=== PATIENT | female | born 2005 | race Caucasian/White ===

== ENCOUNTER 2024-08-06 05:56 | Inpatient (IN) | payer OTHER, SELFPAY ==
[2024-08-06] VITALS (136 sets, daily range): BP systolic 65–228; BP diastolic 30–199; PULSE 64–225; RESP 18; TEMP 36.9–37.5; O2SAT 90–100; BMI 28.2
--- NOTE | 2024-08-06 06:29 | PM.IMHP ---
H&P: HPI History of Present Illness Date/Time: 08/06/24 06:29 Chief Complaint: Induction of labor at term Narrative: 19-year-old 1 para 0 whose last menstrual period gives an EDC of 08/10/2024 confirmed by early ultrasound presents at 39 and half weeks gestation for induction of labor. She is negative for group B strep in her has been uncomplicated. Her cervix is favorable Review of Systems Review of Systems: All systems reviewed & are unremarkable except as noted in HPI and below PMFSH Family History Family History Other Patient denies significant medical history Social History Social History Substance use: never Spiritual care concerns: No Meds Home Medications and Allergies Home Medications ?Medication ?Instructions ?Recorded ?Confirmed ?Type Vitamin BYMOUTH DAILY 07/11/24 History ferrous sulfate 325 mg (65 mg 325 mg PO DAILY 07/11/24 07/11/24 History iron) tablet (FeroSul) Allergies Allergy/AdvReac Type Severity Reaction Status Date / Time No Known Allergies Allergy Verified 07/11/24 13:56 Exam Const: General: cooperative, healthy appearing and comfortable Nutritional Appearance: average body habitus Orientation/consciousness: oriented to person, oriented to place and oriented to time HENMT: Head: normal to inspection Chest: Chest palpation & inspection: normal inspection of the chest Resp: Effort & Inspection: normal respiratory effort Cardio: Rate: regular rate Rhythm: regular rhythm Heart sounds: S1 normal heart sound present and S2 normal heart sound present GI: Inspection: normal to inspection (Gravid soft uterus) : External Female Exam: normal external appearance Speculum Exam - Vagina: normal appearance of the vagina Speculum Exam - Cervix: normal appearance of the cervix (Cervix 3/80/1. Attempted a round. FHTs reassuring) Assessment and Plan Assessment and plan (1) Term : Code(s): Z34.90 - Encounter for supervision of normal , unspecified, unspecified trimester Status: Acute Plan Medical induction of labor. Spontaneous vaginal delivery is expected. She is an epidural candidate
[2024-08-06 06:35] LABS: Basophils Percent Auto 0.3 % (0.2-1.2); Eosinophils Absolute Auto 0.2 K/mm3 (0-0.3); Eosinophils Percent Auto 1.2 % (0-4.4); Hematocrit 32.8 % (37.0-47.0); Immature Granulocyte Absolute 0.19 K/mm3 (0.00-0.031); Immature Granulocyte Percent A 1.5 % (0-0.5); Lymphocytes Absolute Auto 2.62 K/mm3 (0.9-3.2); Lymphocytes Percent Auto 20.7 % (18.3-44.2); Mean Corpuscular HGB Conc 30.5 g/dl (32-36); Mean Corpuscular Hemoglobin 24.4 pg (26-34); Mean Platelet Volume 11.3 fl (7.4-10.4); Monocytes Absolute Auto 0.8 K/mm3 (0.1-0.6); Monocytes Percent Auto 6.1 % (2.6-8.5); Neutrophils Absolute Auto 8.9 K/mm3 (1.3-6.7); Neutrophils Percent Auto 70.2 % (45.5-73.1); Platelet Count Result 173 k/mm3 (150-375); White Blood Count 12.7 K/mm3 (4.5-10.0)
[2024-08-06] MEDS: LACTATED RINGERS 1,000 ML 125 ML IV CONT (06:51)
[2024-08-06] MEDS: OXYTOCIN 30 UNITS/NS 500 ML 30 UNITS/500 ML BAG 6 UNITS IV CONT (06:54)
--- NOTE | 2024-08-06 06:57 | LDADM ---
This patient, Toño Lopez, was admitted to Labor/Delivery/Recovery 107 on 08/06/24 at 05:56. Plans for labor, pain management and were discussed with patient. Patient/family oriented to hospital policies and general routines including ID bracelet, bed and alarms, visiting hours, pain management, procedures, bathroom and other care routines, personal items, smoking policy, room service/diet and guest tray routines, security routines, and visiting hours. Patient/Family are encouraged to report perceived risks to care and to ask questions if they do not understand what they are told or what they should do. See OBIX for further documentation.
[2024-08-06 07:20] LABS: Syphilis IgG/IgM Antibody Negative (Negative)
[2024-08-06 07:26] LABS: HIV 1/2 Ab P24 Ag Result Negative (Negative)
[2024-08-06] MEDS: ONDANSETRON INJ 4 MG/2 ML VIAL IV PUSH (10:00)
[2024-08-06] MEDS: fentaNYL CITRATE INJ (*CRX) 100 MCG/2 ML VIAL IV PUSH (10:02)
[2024-08-06] MEDS: LACTATED RINGERS 1,000 ML 999 ML IV CONT ×2 (10:21→12:57)
--- NOTE | 2024-08-06 10:27 | P.PNAN_ITS ---
Anes - Eval Pre Procedure Procedure: Labor epidural Date/Time: 08/06/24 10:27 Surgeon: Yanet Santana Preop Diagnosis: Abdominal pain with contractions Pre Op Diagnosis: IOL Patient Data Age: 19 Gender: F Height: 1.6 m Weight: 72.3 kg Last Vital Signs Temp 98.6 F 08/06/24 08:00 Pulse 68 08/06/24 10:16 BP 119/63 08/06/24 10:16 Pulse Ox 97 08/06/24 10:22 Allergies Allergy/AdvReac Type Severity Reaction Status Date / Time No Known Allergies Allergy Verified 07/11/24 13:56 Home Medications ?Medication ?Instructions ?Recorded ?Confirmed ?Type Vitamin BYMOUTH DAILY 07/11/24 History ferrous sulfate 325 mg (65 mg 325 mg PO DAILY 07/11/24 07/11/24 History iron) tablet (FeroSul) Laboratory Tests 08/06/24 06:10 WBC 12.7 H K/mm3 (4.5-10.0) RBC 4.10 L M/mm3 (4.2-5.4) Hgb 10.0 L g/dL (12.0-15.0) Hct 32.8 L % (37.0-47.0) MCV 80.0 fl (80-100) MCH 24.4 L pg (26-34) MCHC 30.5 L g/dl (32-36) RDW 19.0 H % (11.5-14.5) Plt Count 173 k/mm3 (150-375) MPV 11.3 H fl (7.4-10.4) Immature Gran % (Auto) 1.5 H % (0-0.5) Neut % (Auto) 70.2 % (45.5-73.1) Lymph % (Auto) 20.7 % (18.3-44.2) [place] % (Auto) 6.1 % (2.6-8.5) Eos % (Auto) 1.2 % (0-4.4) Baso % (Auto) 0.3 % (0.2-1.2) Lymph # (Auto) 2.62 K/mm3 (0.9-3.2) [place] # (Auto) 0.8 H K/mm3 (0.1-0.6) Eos # (Auto) 0.2 K/mm3 (0-0.3) Baso # (Auto) 0.0 K/mm3 (0.0-0.1) Abs Immat Gran (auto) 0.19 H K/mm3 (0.00-0.031) Absolute Neuts (auto) 8.9 H K/mm3 (1.3-6.7) Absolute Nucleated RBC 0.000 K/mm3 (0.0-0.012) Nucleated RBC % 0.0 % (0.0-0.2) Syphilis IgG/IgM Ab Negative (Negative) HIV 1&2 Ab/P24 Ag 4thGn Negative (Negative) Blood Type O Positive Antibody Screen Negative : gestational age HCG: positive Patient hx anesthesia problems: none Family hx anesthesia problems: none Results Review: All pre-operative results and documents have been reviewed as part of the pre- operative evaluation. [facility] Past Medical History Medical History Term Family History Family History Other Patient denies significant medical history Social History Social History Smoking status: Never smoker Second hand tobacco smoke exposure: No Substance use: never Do You Feel Safe in your Home?: Yes Lack of Transportation: No Lack of Food: Never True Current Housing: I Have Housing Concerned About Future Housing: No Difficulty Paying Gas/Electric Bills: No Difficulty Paying for Meds: No Currently Unemployed: No Education: Grade School Difficulty w/ Childcare or Family Care: No Spiritual care concerns: No Exam Day of Procedure 08/06/24 10:27 Patient weight: overweight Heart: regular rate and rhythm Lungs: clear to auscultation Airway: Mallampati scale
--- NOTE | 2024-08-06 12:25 | PM.OBPNLAB ---
Pain Control Date/time seen: 08/06/24 12:25 Pain control: tolerating well and epidural Pelvic Exam Dilation (cm): 7 Effacement (%): 100 station: 0 Amniotic membrane status: Leaking
--- NOTE | 2024-08-06 14:39 | P.PCNOB_ITS ---
OB - Vaginal Delivery Note Procedure Delivery date: 08/06/24 Events: Elective Induction of Labor Induction method: AROM Delivery augmentation: Pitocin Delivery monitor: External FHT and External Uterine Route of delivery: Episiotomy description: None Laceration Description: Perineal - 1st Degree Delivery repair: vicryl Specimen: No Quantitative Blood Loss (ml): 62 Anesthesia type: Epidural Disposition: Floor Complications: No immediate complications Narrative: Patient was admitted for induction of labor on the early a.m. 08/06/2024. Artificial rupture membranes performed. Epidural anesthesia was placed later that morning and she progressed to an unremarkable 1st stage of labor when she was complete she pushed delivered head spontaneously in the ANGELO position. Anterior posterior shoulder delivered spontaneously. Cord clamped and cut and placed in warmer given Apgars of 9 [id number]. Cord blood was drawn. Placenta delivered SPECT spontaneously. Twenty-two and post Pitocin placed IV to help firm the uterus. After inspecting the lateral sidewalls a small sulcal tear was seen in the midportion and a [id number] placed as it was a 1st degree QBL was 62cc. All sponge, needle, instrument counts were correct. There were no immediate complications [place] Baby Date of : 08/06/24 Time of : 14:30 Gestational Age by Date: 39 Infant gender: Female Weight (pounds): 6 Weight (ounces): 12 presentation: vertex position: Left Occiput Anterior Placenta delivery description: Spontaneous Cord Vessel Description: 3 Vessels score one minute: 9 score five minutes: 9
--- NOTE | 2024-08-06 14:42 | P.DS_ITS ---
DS: Admitting Diagnosis Discharge Date 08/08/2024 Admitting Diagnosis Term DS: Discharge Diagnosis Discharge Diagnosis (1) Term : Code(s): Z34.90 - Encounter for supervision of normal , unspecified, unspecified trimester Status: Acute DS: Summary Hospital Course Reason for hospitalization: Patient was admitted early a.m. for induction of labor and underwent spontaneous vaginal delivery on 08/06/2024 Hospital Course: The patient's hospital course was unremarkable. She remained afebrile. She was up, voiding without difficulty, ambulating, eating regular diet, and generally without complaints. Time Spent with Patient Time attestation: Total time spent providing and/or coordinating discharge services: Exam Const: General: cooperative, healthy appearing and comfortable Nutritional Appearance: average body habitus Orientation/consciousness: oriented to person, oriented to place and oriented to time HENMT: Head: normal to inspection Chest: Chest palpation & inspection: normal inspection of the chest Resp: Effort & Inspection: normal respiratory effort Cardio: Rate: regular rate Rhythm: regular rhythm Heart sounds: S1 normal heart sound present and S2 normal heart sound present GI: Inspection: normal to inspection (Gravid soft uterus) : External Female Exam: normal external appearance Speculum Exam - Vagina: normal appearance of the vagina Speculum Exam - Cervix: normal appearance of the cervix (Cervix 3/80/1. Attempted a round. FHTs reassuring) DS: Data Data Completed and Pending Labs on day of discharge: Labs from last 24 hours 08/06/24 06:10 WBC 12.7 H RBC 4.10 L Hgb 10.0 L Hct 32.8 L MCV 80.0 MCH 24.4 L MCHC 30.5 L RDW 19.0 H Plt Count 173 MPV 11.3 H Immature Gran % (Auto) 1.5 H Neut % (Auto) 70.2 Lymph % (Auto) 20.7 [place] % (Auto) 6.1 Eos % (Auto) 1.2 Baso % (Auto) 0.3 Lymph # (Auto) 2.62 [place] # (Auto) 0.8 H Eos # (Auto) 0.2 Baso # (Auto) 0.0 Abs Immat Gran (auto) 0.19 H Absolute Neuts (auto) 8.9 H Absolute Nucleated RBC 0.000 Nucleated RBC % 0.0 Syphilis IgG/IgM Ab Negative HIV 1&2 Ab/P24 Ag 4thGn Negative Blood Type O Positive Antibody Screen Negative Discharge Plan Discharge Attending physician on discharge: Lewis Mohan Discharging Clinician: Lewis Mohan Patient Disposition: Home Activity: may shower, no straining and pelvic rest Diet: heart healthy Wound Care Instructions: follow printed instructions Patient Instructions: Antibiotic Form Patient Language: Yoruba Stand Alone Forms: General Discharge Information Follow-up/Referrals: Lewis Mohan MD [Physician] - Discharge Medications: Continued ferrous sulfate [FeroSul] 325 mg (65 mg iron) tablet 325 mg PO DAILY Vitamin BYMOUTH DAILY Date of admission: 08/06/24 05:56 Primary Care Provider: UNKNOWN,DOCTOR Admitting Provider: Lewis Mohan Attending physician on admission: Lewis Mohan Condition: Stable
[2024-08-06] MEDS: OXYTOCIN 30 UNITS/NS 500 ML 30 UNITS/500 ML BAG 125 UNITS IV CONT (15:01)
--- NOTE | 2024-08-06 18:00 | OBPPTRN ---
Patient transferred to post room #290 via wheelchair. Support person present. Oriented to unit, room, information board, rooming in, admission packet and security measures. Patient verbalizes understanding.
[2024-08-07 04:55] VITALS: TEMP 36.7
[2024-08-07] MEDS: IBUPROFEN 600 MG TABLET PO (04:55)
[2024-08-07 05:45] LABS: Hematocrit 31.1 % (37.0-47.0); Hemoglobin 9.3 g/dL (12.0-15.0)
--- NOTE | 2024-08-07 07:01 | P.PNOB_ITS ---
OB - PN: Subj Subjective Date/time seen: 08/07/24 07:01 Patient comments: no complaints, pain well controlled and tolerating diet [place] baby status: doing well OB - PN: Obj Data Labs 08/07/24 04:57 Labs: Laboratory Results - last 24 hr 08/06/24 08/07/24 06:10 04:57 Hgb 9.3 L Hct 31.1 L Syphilis IgG/IgM Ab Negative HIV 1&2 Ab/P24 Ag 4thGn Negative Blood Type O Positive Antibody Screen Negative OB - PN A/P Assessment and Plan (1) Term : Code(s): Z34.90 - Encounter for supervision of normal , unspecified, unspecified trimester Status: Acute Plan Comments: routine care Time Spent With Patient Time: Total time spent is greater than 50% in coordination of care (as documented) at patient's floor/unit and/or counseling patient: Review of Systems 2 Review of Systems: All systems reviewed & are unremarkable except as noted in HPI and below Exam 2 Const: General: cooperative, healthy appearing and comfortable Nutritional Appearance: average body habitus Orientation/consciousness: oriented to person, oriented to place and oriented to time HENMT: Head: normal to inspection Chest: Chest palpation & inspection: normal inspection of the chest Resp: Effort & Inspection: normal respiratory effort Cardio: Rate: regular rate Rhythm: regular rhythm Heart sounds: S1 normal heart sound present and S2 normal heart sound present GI: Inspection: normal to inspection (Gravid soft uterus) : External Female Exam: normal external appearance Speculum Exam - Vagina: normal appearance of the vagina Speculum Exam - Cervix: normal appearance of the cervix (Cervix 3/80/1. Attempted a round. FHTs reassuring)
[2024-08-07] MEDS: POLYSACCHARIDE IRON COMPLEX 150 MG CAPSULE PO ×2 (08:27→20:20)
[2024-08-07] MEDS: MULTIVIT/MIN/PREN/FOL AC/IRON TABLET 1 TAB PO (08:27)
[2024-08-07] MEDS: DOCUSATE SODIUM 100 MG CAPSULE PO ×2 (08:27→20:20)
[2024-08-07 08:30] VITALS: BP 98/61; PULSE 77; RESP 16; TEMP 36.6; O2SAT 99
--- NOTE | 2024-08-07 08:43 | WPDANLDPN2 ---
Anes-Prog Note L&D Date/Time: 08/07/24 08:43 Comfortable throughout: labor and delivery Neuraxial method: epidural Epidural/Spinal procedure site: clean & non-tender Neuro status: Neuro function grossly intact. Cardiovascular status: normal Respiratory status: normal Airway patency: baseline Mental status: baseline Post-Op hydration status: normal Vital Signs: Last Vital Signs Temp 36.7 C 08/07/24 04:55 Pulse 92 08/06/24 23:30 Resp 18 08/06/24 23:30 BP 99/61 L 08/06/24 23:30 Pulse Ox 100 08/06/24 23:30 O2 Del Method Room Air 08/06/24 18:19 Pain score (VAS): 2 Post-procedural complaints: none Patient feedback: Patient satisfied with anesthetic care.
[2024-08-07 12:30] VITALS: BP 111/72; PULSE 87; RESP 16; TEMP 36.6; O2SAT 99
[2024-08-07 20:20] VITALS: BP 106/68; PULSE 91; RESP 18; TEMP 36.7; O2SAT 100
[2024-08-07] MEDS: ACETAMINOPHEN 325 MG TABLET 650 MG PO (20:20)
[2024-08-08] MEDS: DOCUSATE SODIUM 100 MG CAPSULE PO (07:56)
[2024-08-08] MEDS: POLYSACCHARIDE IRON COMPLEX 150 MG CAPSULE PO (07:56)
[2024-08-08] MEDS: IBUPROFEN 600 MG TABLET PO (08:01)
--- NOTE | 2024-08-08 08:06 | PM.OBPNVD ---
OB - PN: Subj Subjective Date/time seen: 08/08/24 08:06 Patient comments: no complaints, pain well controlled and tolerating diet [place] feeding status: exclusively breast feeding OB - PN: Obj Data Labs 08/07/24 04:57 OB - PN A/P Assessment and Plan (1) Term : Code(s): Z34.90 - Encounter for supervision of normal , unspecified, unspecified trimester Status: Acute Plan Comments: home Time Spent With Patient Time: Total time spent is greater than 50% in coordination of care (as documented) at patient's floor/unit and/or counseling patient: Review of Systems Review of Systems: All systems reviewed & are unremarkable except as noted in HPI and below Exam Const: General: cooperative, healthy appearing and comfortable Nutritional Appearance: average body habitus Orientation/consciousness: oriented to person, oriented to place and oriented to time HENMT: Head: normal to inspection Chest: Chest palpation & inspection: normal inspection of the chest Resp: Effort & Inspection: normal respiratory effort Cardio: Rate: regular rate Rhythm: regular rhythm Heart sounds: S1 normal heart sound present and S2 normal heart sound present GI: Inspection: normal to inspection (Gravid soft uterus) : External Female Exam: normal external appearance Speculum Exam - Vagina: normal appearance of the vagina Speculum Exam - Cervix: normal appearance of the cervix (Cervix 3/80/1. Attempted a round. FHTs reassuring)
[2024-08-08 08:35] VITALS: BP 112/69; PULSE 70; RESP 18; TEMP 36.8; O2SAT 100
--- NOTE | 2024-08-08 10:23 | PC.NURSE ---
Patient viewed the discharge video Mother & Baby Care, The First Two Weeks . Patient was given the opportunity and encouraged to ask questions. Patient verbalized understanding of information shared and has been given the mother/baby guide for home reference.
[2024-08-09 08:45] VITALS: BP 108/65; PULSE 78; RESP 18; TEMP 36.9; O2SAT 100
== END 2024-08-08 12:00 | disposition home or self-care (01) | DRG 560 ==
LOC: ANHLDR 14:44 → ANHOB2 18:00
PROVIDERS: Admitting Provider Obstetrics & Gynecology; Visit Provider Obstetrics & Gynecology
DX: O70.0 First degree perineal laceration during delivery (principal); Z37.0 Single live birth; Z3A.39 39 weeks gestation of pregnancy
CPT/HCPCS: 36415; 85014; 85018; 85025; 86593; 86703; 86850; 86900; 86901; A9270; G0432; J2405; J2590; J2795; J3010; J7120

== ENCOUNTER 2024-08-12 16:39 | Outpatient (CLI) | payer OTHER, SELFPAY ==
[2024-08-12 18:04] LABS: Hematocrit 36.5 % (37.0-47.0); Hemoglobin 10.7 g/dL (12.0-15.0); Mean Corpuscular HGB Conc 29.3 g/dl (32-36); Mean Corpuscular Hemoglobin 24.1 pg (26-34); Mean Corpuscular Volume 82.2 fl (80-100); Mean Platelet Volume 10.8 fl (7.4-10.4); Platelet Count Result 224 k/mm3 (150-375); Red Blood Count 4.44 M/mm3 (4.2-5.4); Red Cell Distribution Width 18.9 % (11.5-14.5); White Blood Count 11.4 K/mm3 (4.5-10.0)
[2024-08-12 18:15] LABS: Alanine Aminotransferase 33 U/L (6-35); Albumin Level 4.3 g/dL (3.5-5.1); Alkaline Phosphatase 157 U/L (38-126); Anion Gap 11 mmol/L (4-12); Aspartate Amino Transferase 28 U/L (14-36); Bilirubin,Total 0.5 mg/dL (0.2-1.3); Blood Urea Nitrogen 14 mg/dL (7-17); Calcium 9.4 mg/dL (8.4-10.2); Carbon Dioxide 26 mmol/L (22-30); Chloride 102 mmol/L (98-107); Estimated Glomerular Filt Rate > 60; Glucose 66 mg/dL (65-110); Potassium 3.8 mmol/L (3.4-5.0); Sodium 139 mmol/L (137-145)
== END 2024-08-12 16:40 | disposition home or self-care (01) ==
LOC: ANHLAB 16:41
PROVIDERS: Visit Provider Obstetrics & Gynecology
DX: O86.4 Pyrexia of unknown origin following delivery (principal); G89.18 Other acute postprocedural pain
CPT/HCPCS: 36415; 80053; 85027

== ENCOUNTER 2024-10-06 23:55 | Emergency (ER) | payer OTHER, SELFPAY ==
[2024-10-06 23:59] VITALS: BP 100/65; PULSE 64; RESP 16; TEMP 36.7; O2SAT 100
--- NOTE | 2024-10-07 00:05 | PC.NURSE ---
pt mother to intake desk we are too scared we are going to get the baby sick, so we are going to go.
== END 2024-10-07 00:59 | disposition left against medical advice (07) ==
LOC: ANHED 10-07 00:10
DX: R10.9 Unspecified abdominal pain (principal)
CPT/HCPCS: 99199